=== PATIENT | female | born 1955 | race Caucasian/White ===

== ENCOUNTER 2016-12-24 11:49 | Emergency (ER) | payer BC, OTHER ==
--- NOTE | 2016-12-24 12:13 | UC ---
Throat Pain/Nasal Miguel HPI - HPI Summary HPI Summary: SINUS PAIN AND PRESSURE X 7 DAYS + NASAL CONGESTION , PND, COUGH NO FEVER, + CHILLS - History of Current Complaint Chief Complaint: UCRespiratory Stated Complaint: SINUS CONGESTION Time Seen by Provider: 12/24/16 11:54 Hx Obtained From: Patient Hx Last Menstrual Period: n/a menopause ?: No Onset/Duration: Gradual Onset, Lasting Days - 7, Still Present Severity: Moderate Cough: Nonproductive Associated Signs & Symptoms: Positive: Sinus Discomfort, Nasal Discharge. Negative: Fever, Rash - Allergies/Home Medications Allergies/Adverse Reactions: Allergies Allergy/AdvReac Type Severity Reaction Status Date / Time Aspirin AdvReac GI Upset Verified 04/17/16 13:42 Home Medications: Home Medications Phenylephrine W/ Acetaminophen [Tylenol Sinus Congestion 5-325 mg] 2 tab PO PRN 12/24/16 [History] PMH/Surg Hx/FS Hx/Imm Hx Previously Healthy: Yes - Surgical History Surgical History: Yes Surgery Procedure, Year, and Place: HIATAL HERNIA REPAIR 07/2012. BARIATRIC SURGERY 07/2012 - Family History Known Family History: Positive: None Negative: Diabetes - Social History Alcohol Use: Rare Substance Use Type: None Smoking Status (MU): Never Smoked Tobacco - Immunization History Most Recent Influenza Vaccination: Not this season Review of Systems Constitutional: Negative Skin: Negative Eyes: Negative ENT: Sore Throat, Nasal Discharge Respiratory: Cough All Other Systems Reviewed And Are Negative: Yes Physical Exam Triage Information Reviewed: Yes Appearance: Well-Appearing, No Pain Distress, Well-Nourished Vital Signs: Initial Vital Signs Temp 99.1 F 12/24/16 11:58 Pulse 75 12/24/16 11:58 Resp 16 12/24/16 11:58 Pulse Ox 100 12/24/16 11:58 Vital Signs Reviewed: Yes Eyes: Positive: Conjunctiva Clear ENT: Positive: Normal ENT inspection, Hearing grossly normal, Pharynx normal, Nasal congestion, Nasal drainage, TMs normal. Negative: TM bulging, TM dull, TM red Neck exam: Normal Neck: Positive: Supple, Nontender, No Lymphadenopathy Respiratory: Positive: Chest non-tender, Lungs clear, Normal breath sounds Cardiovascular: Positive: RRR, No Murmur, Pulses Normal Skin Exam: Normal Throat Pain/Nasal Course/Dx - Differential Dx/Diagnosis Provider Diagnoses: SINUSITIS Discharge - Discharge Plan Condition: Stable Disposition: HOME Prescriptions: Amoxicillin/Clavulanate TAB* [Augmentin TAB 875*] 875 mg PO BID #20 tab Patient Education Materials: Sinusitis (ED) Referrals: Adiel Rosas [Primary Care Provider] - If Needed
== END 2016-12-24 12:15 | disposition home or self-care (01) ==
LOC: UCCORT 11:49
DX: J32.9 Chronic sinusitis, unspecified (principal); Z88.6 Allergy status to analgesic agent
CPT/HCPCS: 99211; G0463